=== PATIENT | male | born 1975 | race Hispanic/Latino ===

== ENCOUNTER 2022-07-01 01:15 | Emergency (ER) | payer BC ==
[~2022-07-01] VITALS: Ht 167.6 cm; Wt 86.4 kg
[~2022-07-01 01:15] MED LIST: FLUO20CA36 PO; GABA-529 PO; LOSA25TA41 PO; METO-408 PO; POLY17PO4 PO; SERT100T PO; ZOLP5TAB2 PO
[2022-07-01] MEDS ORDERED: 0.9%NACL 1000ML 1,000 ML IV ONE (01:30)
[2022-07-01] MEDS ORDERED: LIDOCAINE HCL 2% VISCOUS 15 ML UDCUP PO ONE (01:30)
[2022-07-01] MEDS ORDERED: MAG/ALUM/SIMETH 30 ML UDCUP PO ONE (01:30)
[2022-07-01] MEDS ORDERED: DICYCLOMINE HCL 10 MG/5 ML ML PO ONE (01:30)
[2022-07-01] MEDS ORDERED: ONDANSETRON 4MG INJ IVP ONE (01:30)
[2022-07-01 01:54] LABS: BASOPHILS % (AUTO) 0.7 % (0.0-5.0); EOSINOPHILS % (AUTO) 1.3 % (0.0-8.0); HEMATOCRIT 44.6 % (42-54); LYMPHOCYTES % (AUTO) 25.1 % (21.0-51.0); MEAN CORPUSCULAR HEMOGLOBIN 31.3 pg (27.0-33.0); MEAN CORPUSCULAR VOLUME 89.4 fL (79-99); MONOCYTES % (AUTO) 8.4 % (3.0-13.0); NEUTROPHILS % (AUTO) 64.1 % (40.0-77.0); PLATELET COUNT (AUTO) 312 K/uL (130-400); RED BLOOD CELL COUNT(AUTO) 4.99 MIL/uL (4.50-6.20); RED CELL DISTRIBUTION WIDTH 12.6 % (11.0-15.5); WHITE BLOOD COUNT (AUTO) 10.8 K/uL (4.8-10.8)
[2022-07-01 01:56] LABS: APPEARANCE,URINE CLEAR (CLEAR); BILIRUBIN,URINE NEGATIVE (NEGATIVE); COLOR,URINE COLORLESS (YELLOW); GLUCOSE, URINE (UA) NEGATIVE (NEGATIVE); KETONES,URINE NEGATIVE (NEGATIVE); LEUKOCYTE ESTERASE ,URINE NEGATIVE Leu/uL (NEGATIVE); NITRATE,URINE NEGATIVE (NEGATIVE); OCCULT BLOOD,URINE NEGATIVE (NEGATIVE); PROTEIN,URINE NEGATIVE (NEGATIVE); UROBILINOGEN,URINE 0.2 mg/dL (0.2-1.0)
[2022-07-01 02:03] LABS: CREATININE 0.9 mg/dL (0.5-1.5); POTASSIUM 4.3 mmol/L (3.5-5.1)
[2022-07-01 02:08] LABS: ALBUMIN 4.3 g/dL (3.5-5.0); TOTAL PROTEIN, SERUM 7.5 g/dL (6.0-8.3)
[2022-07-01] MEDS ORDERED: KETOROLAC 30MG VIAL (30MG/ML) ONE (02:12)
[2022-07-01] MEDS ORDERED: KETOROLAC 30MG VIAL (30MG/ML) IVP ONE (02:30)
[2022-07-01] MEDS ORDERED: MORPHINE 2 MG SYG ONE (02:50)
[2022-07-01] MEDS ORDERED: MORPHINE 2 MG SYG IVP ONE (03:00)
[2022-07-01 04:18] VITALS: BP 130/93
== END 2022-07-01 05:27 | disposition left against medical advice (07) ==
LOC: EDH 01:15
DX: R10.13 Epigastric pain (principal); F41.9 Anxiety disorder, unspecified; I10 Essential (primary) hypertension; Z79.1 Long term (current) use of non-steroidal anti-inflammatories (NSAID); Z79.899 Other long term (current) drug therapy; Z88.5 Allergy status to narcotic agent; Z88.8 Allergy status to other drugs, medicaments and biological substances
CPT/HCPCS: 99284; 74176; 96374; 71045; 96375; 96361; 84484; 80053; 83690; 85025; 81003; 36415; 93005; J7030; J2405; J1885

== ENCOUNTER 2025-01-07 08:45 | Emergency (ER) | payer BC ==
[~2025-01-07] VITALS: Ht 165.1 cm; Wt 95.3 kg
[~2025-01-07 08:45] MED LIST changes: +FLUO-418 PO; -FLUO20CA36 PO; +ZOLP-684 PO; -ZOLP5TAB2 PO
[2025-01-07 09:16] LABS: IMMATURE GRANULOCYTE ABSOLUTE 0.03 K/uL (0-1); NUCLEATED RED BLOOD CELLS 0.0 % (0.0-0.19); PLATELET COUNT (AUTO) 259 K/uL (130-400); RED BLOOD CELL COUNT(AUTO) 4.51 MIL/uL (4.50-6.20); RED CELL DISTRIBUTION WIDTH 12.7 % (11.0-15.5); WHITE BLOOD COUNT (AUTO) 8.3 K/uL (4.8-10.8)
[2025-01-07 09:32] LABS: CREATININE 1.1 mg/dL (0.5-1.3); GLOMERULAR FILTR. RATE CALC 81.0 mL/min (>90); GLUCOSE,RANDOM 129.0 mg/dL (70-105); SODIUM SERUM 140.0 mmol/L (136-145); UREA NITROGEN, BLOOD 20.0 mg/dL (7-18)
[2025-01-07 09:39] LABS: ASPARTATE AMINOTRANSFERASE 44.0 U/L (10-37); TOTAL PROTEIN, SERUM 7.4 g/dL (6.0-8.3)
[2025-01-07 10:17] LABS: APPEARANCE,URINE CLEAR (CLEAR); GLUCOSE, URINE (UA) NEGATIVE (NEGATIVE); LEUKOCYTE ESTERASE ,URINE NEGATIVE Leu/uL (NEGATIVE); NITRATE,URINE NEGATIVE (NEGATIVE); OCCULT BLOOD,URINE NEGATIVE (NEGATIVE)
[2025-01-07 10:23] LABS: ADD UA MICROSCOPIC YES
--- NOTE | 2025-01-07 10:58 | ERN ---
ED Note History of Present Illness Stated Complaint: RIGHT FLANK PAIN Chief Complaint: Flank Pain Time Seen by MD: 08:47 Dictation: 49-year-old male presenting to the emergency department with right flank pain past few days worse today. Patient denies any fever vomiting or pain with urination history of kidney stones tachypnea Allergies: Coded Allergies: codeine (Verified Allergy, Unknown, 03/07/19) iodine (Verified Allergy, Unknown, 03/07/19) Home Meds Active Scripts Zolpidem Tartrate (Ambien) 5 Mg Tablet, 5 MG PO HS PRN for SLEEP for 7 Days, #7 TAB Prov:MELODY HAQ MD 03/09/19 Gabapentin (Gabapentin) 100 Mg Capsule, 100 MG PO DAILYDINNER for 30 Days, #30 CAP Prov:MELODY HAQ MD 03/09/19 Fluoxetine HCl (Fluoxetine HCl) 20 Mg Capsule, 20 MG PO DAILY for 30 Days, #30 CAP Prov:MELODY HAQ MD 03/09/19 Reported Medications Polyethylene Glycol 3350 (Miralax) 17 Gm Powd.pack, 17 GM PO DAILY 03/07/19 Sertraline HCl (Zoloft) 100 Mg Tablet, 100 MG PO DAILY, TAB 03/07/19 Metoprolol Succinate (Metoprolol Succinate) 25 Mg Tab.er.24h, 25 MG PO DAILY, TAB 03/07/19 Losartan Potassium (Losartan Potassium) 25 Mg Tablet, 25 MG PO DAILY, TAB 03/07/19 Past Medical History Past Medical History: Anxiety, Hypertension Surgical History: None Family History: Negative Social History: Lives with family Review of System Dictation Constitutional: Negative for fever,chills, and weight loss Eyes: Negative for injury, pain,redness, and discharge ENT: Negative for injury,pain or swelling Cardiovascular: Negative for chest pain, palpitations, and edema Respiratory: Negative for shortness of breath, cough, and wheezing, Abdomen/GI: Per HPI : Negative for injury, bleeding and discharge MS/Extremity: Negative for injury and deformity Skin: Negative for rash, and discoloration Neuro: Negative for headache, weakness, numbness, tingling, and seizure Psych: Negative for suicide ideation, homicidal ideation, and hallucinations Initial Vital Sign VS Vital Signs Date Time Temp Pulse Resp B/P (MAP) Pulse Ox O2 Delivery O2 Flow Rate FiO2 01/07/25 08:46 98.1 92 16 148/92 99 Room Air 01/07/25 10:22 0 21 Physical Exam Dictation General: awake, alert, NAD Head/Face: Normocephalic, atraumatic Eyes: PERRL, EOMI, vision at baseline ENT: oral cavity clear, TMs clear, no signs of infection Neck: Trachea midline, supple, no nuchal rigidity Cardiovascular: RRR, normal S1/S2, No MRGs, no JVD Respiratory: CTAB, no respiratory distress, No rales or wheezes Abdomen: Soft, non-tender, non-distended, normal bowel sounds, no guarding or re bound right CVA tenderness to palpation. Skin: Warm, dry, normal turgor, no rash MS/Extremity: Pulses equal, no cyanosis, neurovascular intact, FROM Neuro: COAx4, GCS 15, strength 5/5, CN 2-12 intact, normal cerebellar exam, normal gait, Psych: Normal behavior, mood, and affect normal Results (Laboratory/Radiology) Laboratory/Radiology Laboratory Tests Test 01/07/25 09:09 01/07/25 09:54 White Blood Count 8.3 K/uL (4.8-10.8) Red Blood Count 4.51 MIL/uL (4.50-6.20) Hemoglobin 14.2 g/dL (14.0-18.0) Hematocrit 41.7 % (42-54) L Mean Corpuscular Volume 92.5 fL (79-99) Mean Corpuscular Hemoglobin 31.5 pg (27.0-33.0) Mean Corpuscular Hemoglobin Concent 34.1 g/dL (32.0-36.0) Red Cell Distribution Width 12.7 % (11.0-15.5) Platelet Count 259 K/uL (130-400) Mean Platelet Volume 10.1 fL (7.5-10.5) Immature Granulocyte % (Auto) 0.4 % (0-1) Neutrophils (%) (Auto) 59.2 % (40.0-77.0) Lymphocytes (%) (Auto) 30.6 % (21.0-51.0) Monocytes (%) (Auto) 6.5 % (3.0-13.0) Eosinophils (%) (Auto) 2.5 % (0.0-8.0) Basophils (%) (Auto) 0.8 % (0.0-5.0) Neutrophils # (Auto) 4.9 K/uL (1.8-7.7) Lymphocytes # (Auto) 2.6 K/uL (1.0-4.8) Monocytes # (Auto) 0.5 K/uL (0.1-1.0) Eosinophils # (Auto) 0.21 K/uL (0.00-0.70) Basophils # (Auto) 0.07 K/uL (0.00-0.20) Absolute Immature Granulocyte (auto 0.03 K/uL (0-1) Nucleated Red Blood Cells 0.0 % (0.0-0.19) Sodium Level 140 mmol/L (136-145) Potassium Level 4.8 mmol/L (3.5-5.1) Chloride Level 102 mmol/L (101-111) Carbon Dioxide Level 28 mmol/L (21-32) Blood Urea Nitrogen 20 mg/dL (7-18) H Creatinine 1.1 mg/dL (0.5-1.3) Glomerular Filtration Rate Calc 81 mL/min (>90) Random Glucose 129 mg/dL (70-105) H Total Calcium 8.6 mg/dL (8.5-10.1) Total Bilirubin 0.4 mg/dL (0.2-1.0) Direct Bilirubin 0.1 mg/dL (0.0-0.3) Aspartate Amino Transf (AST/SGOT) 44 U/L (10-37) H Alanine Aminotransferase (ALT/SGPT) 94 U/L (12-78) H Alkaline Phosphatase 77 U/L (50-136) Total Protein 7.4 g/dL (6.0-8.3) Albumin 3.7 g/dL (3.5-5.0) Urine Color LIGHT-YELLOW (YELLOW) Urine Appearance CLEAR (CLEAR) Urine pH 5.5 (5.0-8.0) Urine Specific [place] 1.012 (1.001-1.031) Urine Protein 10 mg/dL (NEGATIVE) H Urine Glucose (UA) NEGATIVE mg/dL (NEGATIVE) Urine Ketones NEGATIVE mg/dL (NEGATIVE) Urine Occult Blood NEGATIVE (NEGATIVE) Urine Nitrate NEGATIVE (NEGATIVE) Urine Bilirubin NEGATIVE mg/dL (NEGATIVE) Urine Urobilinogen 0.2 mg/dL (0.2-1.0) Urine Leukocyte Esterase NEGATIVE [place]/uL Urine RBC 0-1 /HPF (0-1) Urine WBC 0-1 /HPF (0-1) Urine Bacteria None Seen /HPF (None Seen) Labs Reviewed?: Yes ED Course ED Course Orders Procedure Category Date Status Time Cbc With Differential LAB 01/07/25 Complete 08:54 Basic Metabolic Panel LAB 01/07/25 Complete 08:54 Hepatic Function Panel LAB 01/07/25 Complete 08:54 Urinalysis Profile LAB 01/07/25 Complete 08:54 Ct Abd/Pel Wo Con CT 01/07/25 Resulted Renal/Appy 08:54 Ondansetron 4mg Inj PHA 01/07/25 Complete (Zofran 4mg Inj) 08:54 Ketorolac PHA 01/07/25 Complete Tromethamine 15mg/Ml 08:54 Current Medications Medications (Trade) Dose Ordered Sig/Dieter Route PRN Reason Start Time Stop Time Status Last Admin Dose Admin Ketorolac Tromethamine (toRADol) 15 mg ONCE STAT IV 01/07/25 08:54 01/07/25 08:59 DC 01/07/25 09:49 Ondansetron HCl (zoFRAN 4MG INJ) 4 mg ONCE STAT IVP 01/07/25 08:54 01/07/25 08:59 DC Vital Signs Date Time Temp Pulse Resp B/P (MAP) Pulse Ox O2 Delivery O2 Flow Rate FiO2 01/07/25 13:13 98.1 76 16 135/79 99 Room Air* 0 21 01/07/25 10:22 98.1 80 16 141/87 99 Room Air* 0 21 01/07/25 08:46 98.1 92 16 148/92 99 Room Air Medical Decision Making MDM MDM: Differential diagnosis: Rationale: Tests considered and ordered secondary to shared decision making include: Previous outside records reviewed: Old ER visits. Risk of complication and/or morbidity or mortality of patient management: None Medications-Per medication reconciliation Need for hospitalization: Patient does not meet criteria for hospitalization. Need for emergency major/minor surgery: No There are no social concerns with this patient. Prescription drug management Prescriptions will include symptomatic care Patient's prior external medical records from other ER visits were reviewed by me as indicated. Prior testing and results from previous visits were reviewed. Prior tests were taken into account with medical decision making and resource utilization, independent historian/historians were used to obtain complete medical history. I independently interpreted the test that were performed, results were reviewed by me and considered findings on radiology if ordered. Medical management and examination interpretation discussions were had by me with other qualified healthcare professionals as indicated for the patient's care. 49-year-old with right flank pain stable exam negative workup chronic left kidney issues and scarring CT scan stable prescriptions given referred to primary care doctor. DX & DISP Disposition: Discharge Departure Impression: Primary Impression: Right flank pain Condition: Stable Scripts Cyclobenzaprine HCl (Cyclobenzaprine HCl) 5 Mg Tablet 5 MG PO BID for 5 Days, #10 TAB Prov: ELEN MONET MD 01/07/25 Referrals: RITA LOPEZ (PCP) ELEN MONET MD Jan 07, 2025 10:58
--- NOTE | 2025-01-07 13:04 | HMCIMG ---
EXAM: CT Abdomen and Pelvis Without IV contrast CLINICAL HISTORY: right flank pain TECHNIQUE: Axial computed tomography images of the abdomen and pelvis without intravenous contrast. CONTRAST: No IV contrast. COMPARISON: None provided. FINDINGS: LUNG BASES: The lung bases appear clear. No pleural effusions are seen. LIVER: Unremarkable. GALLBLADDER AND BILE DUCTS: The gallbladder appears within normal limits. No radioopaque gallstones are seen. No biliary ductal dilatation is evident. PANCREAS: Unremarkable. SPLEEN: Unremarkable. ADRENAL GLANDS: Unremarkable. KIDNEYS, URETERS, AND BLADDER: Left kidney measures approximately 14.9 ??? 6.3 cm with multiple hypodense areas throughout the renal parenchyma, some with eccentric calcification. Significant left renal cortical thinning; maximum cortical thickness measures approximately [address] urogram advised for further evaluation. The right kidney appears within normal limits. There is no hydronephrosis or hydroureter. No urinary calculi are seen. STOMACH AND BOWEL: The stomach and small bowel loop appear normal. Few colonic diverticulosis without evidence of diverticulitis. Small hiatal hernia. No evidence of bowel obstruction. No findings suggestive of enteritis or colitis. APPENDIX: No evidence of acute appendicitis on CT examination. PERITONEUM: Approximately 13 mm defect at the umbilicus with herniation of omental fat, suggestive of umbilical hernia. No free fluid. No free air. LYMPH NODES: No lymphadenopathy is evident. REPRODUCTIVE: Unremarkable as visualized. VASCULATURE: No evidence of abdominal aortic aneurysm. BONES: Osseous degenerative changes. No acute osseous pathology is evident.IMPRESSION: 1. Left kidney with multiple hypodense areas, some with eccentric calcification, and significant cortical thinning. CT urogram advised for further evaluation. 2. Umbilical hernia measuring approximately 13 mm with herniation of omental fat. 3. No acute findings in the abdomen or pelvis. /[place]
[2025-01-07 13:13] VITALS: BP 135/79; PULSE 76; RESP 16; TEMP 98.1; O2SAT 99
[2025-01-07] MEDS ORDERED: CYCL5TAB3 PO (13:20)
== END 2025-01-07 13:33 | disposition home or self-care (01) ==
LOC: EDH 08:45
DX: R10.A1 Flank pain, right side (principal); F41.9 Anxiety disorder, unspecified; I10 Essential (primary) hypertension; Z88.5 Allergy status to narcotic agent; Z88.8 Allergy status to other drugs, medicaments and biological substances; Z79.899 Other long term (current) drug therapy
CPT/HCPCS: 99284; 74176; 96374; 80076; 80048; 85025; 81001; 36415; J1885; J2405